=== PATIENT | male | born 1985 | race Caucasian/White ===

== ENCOUNTER 2016-09-17 10:04 | Emergency (ER) | payer SELFPAY ==
[~2016-09-17] VITALS: Ht 198.1 cm; Wt 95.0 kg
[2016-09-17] MEDS ORDERED: COLACE100 MG PO (11:27)
[2016-09-17] MEDS ORDERED: PROCTOFOAM-HC10 GM PR (11:27)
[2016-09-17 11:38] VITALS: BP 112/68
== END 2016-09-17 11:39 | disposition home or self-care (01) ==
LOC: EME 10:04
DX: K64.4 Residual hemorrhoidal skin tags (principal); F17.200 Nicotine dependence, unspecified, uncomplicated
CPT/HCPCS: 99281; 99283